=== PATIENT | female | born 1945 | race Asian ===

== ENCOUNTER 2016-09-10 09:50 | Emergency (ER) | payer MEDICARE ==
[~2016-09-10] VITALS: Ht 149.9 cm; Wt 48.5 kg
[2016-09-10 10:10] VITALS: BP 137/66
[2016-09-10] MEDS ORDERED: Morphine Sulfate 2mg/ml Inj IVP ONE (10:15)
--- NOTE | 2016-09-10 10:44 | Diagnostic Imaging Report ---
Indication: Chest pain Technique: One view of the chest Comparison: none Findings: Lungs and pleural spaces are clear. Heart size is normal. Impression: No acute process
[2016-09-10 10:46] LABS: BASOPHILS % (AUTO) 1.6 % (0.0-2.0); EOSINOPHILS % (AUTO) 4.3 % (0.0-3.0); LYMPHOCYTES % (AUTO) 30.6 % (20.0-45.0); MEAN CORPUSCULAR HEMOGLOBIN 32.4 PG (27.0-31.0); MEAN CORPUSCULAR HGB CONC 34.2 G/DL (32.0-36.0); MEAN CORPUSCULAR VOLUME 95 FL (80-99); MONOCYTES % (AUTO) 6.8 % (1.0-10.0); NEUTROPHILS % (AUTO) 56.8 % (45.0-75.0); PLATELET COUNT 233 K/UL (150-450); RED CELL DISTRIBUTION WIDTH 10.8 % (11.6-14.8); WHITE BLOOD COUNT 4.4 K/UL (4.8-10.8)
[2016-09-10 11:00] LABS: ALANINE AMINOTRANSFERASE 17 U/L (3-33); ALBUMIN/GLOBULIN RATIO 1.2 (1.0-2.7); ANION GAP 11 (5-15); ASPARTATE AMINO TRANSFERASE 19 U/L (5-40); CALCIUM 9.2 mg/dL (8.6-10.2); CARBON DIOXIDE 25 mEQ/L (20-30); CHLORIDE 101 mEQ/L (98-107); CREATININE 0.6 mg/dL (0.5-0.9); GLOMERULAR FILTRATION RATE > 60 mL/min (>60); HEMOLYSIS 25; SODIUM 137 mEQ/L (135-145); TOTAL PROTEIN 7.5 g/dL (6.6-8.7); TROPONIN I < 0.30 ng/mL (<=0.30)
[2016-09-10 11:10] LABS: CKMB 2.5 ng/mL (< 3.8)
[2016-09-10 11:13] VITALS: BP 160/74
[2016-09-10] MEDS ORDERED: ACETAMINOPHEN-1 EAC1 ORAL (12:16)
[2016-09-10 12:35] VITALS: BP 160/80
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
--- NOTE | 2016-09-12 18:15 | Cardiology Report ---
APPROVED REPORT EKG Measurement Heart [id number] Normal sinus rhythm Septal infarct, age undetermined Abnormal ECG
== END 2016-09-10 12:38 | disposition home or self-care (01) ==
LOC: EMR 10:29
DX: S20.219A Contusion of unspecified front wall of thorax, initial encounter (principal); E11.9 Type 2 diabetes mellitus without complications; V49.40XA Driver injured in collision with unspecified motor vehicles in traffic accident, initial encounter; Y92.410 Unspecified street and highway as the place of occurrence of the external cause
CPT/HCPCS: 36415; 71010; 71250; 80053; 82550; 82553; 84484; 85025; 93005; 96361; 96374; 99284; J2270; J7040